=== PATIENT | female | born 1985 | race Caucasian/White ===

== ENCOUNTER 2019-10-24 08:00 | Emergency (ER) | payer BC, MEDICARE ==
[~2019-10-24] VITALS: Ht 157.5 cm; Wt 46.3 kg
--- NOTE | 2019-10-24 08:13 | NUR ---
DR Zabala at the bedside for eval.
[2019-10-24] MEDS ORDERED: levETIRAcetam 500 MG/5 ML VIAL IV ONE (08:27)
[2019-10-24] MEDS ORDERED: levETIRAcetam IV 1,000 MG in IV DEXTROSE 5% 100 ML IV ONE (08:30)
[2019-10-24] MEDS ORDERED: IV NORMAL SALINE 1000 ML BAG IV ONE (08:30)
[2019-10-24] MEDS ORDERED: levETIRAcetam 250 MG TABLET ONE (08:38)
[2019-10-24] MEDS ORDERED: BUPR300T52 PO (08:39)
[2019-10-24] MEDS ORDERED: LEVE1000 PO (08:39)
[2019-10-24] MEDS ORDERED: LEVO25TA2 PO (08:39)
[2019-10-24] MEDS ORDERED: MULT-594 PO (08:39)
--- NOTE | 2019-10-24 08:40 | NUR ---
Pt requested to have HL removed. IV removed. Catheter intact and site benign. Pressure and 4x4 gauze applied to site. No bleeding noted.
[2019-10-24 08:43] LABS: BASOPHILS % (AUTO) 0.7 % (0.0-2.0); EOSINOPHILS # (AUTO) 0.1 K/uL (0.0-0.7); EOSINOPHILS % (AUTO) 2.4 % (0.0-7.0); HEMATOCRIT 32.3 % (31.2-41.9); LYMPHOCYTES # (AUTO) 1.5 K/uL (20.0-40.0); LYMPHOCYTES % (AUTO) 30.3 % (20.5-51.5); MEAN CORPUSCULAR HEMOGLOBIN 33.1 uug (24.7-32.8); MEAN CORPUSCULAR HGB CONC 34 g/dL (32.3-35.6); MEAN CORPUSCULAR VOLUME 97.1 fL (75.5-95.3); MONOCYTES # (AUTO) 0.3 K/uL (2.0-10.0); MONOCYTES % (AUTO) 6.6 % (0.0-11.0); PLATELET COUNT (AUTO) 340 K/uL (179-408); RED BLOOD CELL COUNT(AUTO) 3.32 MIL/uL (3.63-4.92); WHITE BLOOD COUNT (AUTO) 4.9 K/uL (3.8-11.8)
--- NOTE | 2019-10-24 08:43 | NUR ---
Pt is awake and resting in bed, talking on the phone, No seizure activity noted so far.
[2019-10-24 08:49] LABS: CREATININE 1.1 mg/dL (0.6-1.3)
[2019-10-24 08:55] LABS: BILIRUBIN,DIRECT 0.2 mg/dL (0.0-0.2); BILIRUBIN,TOTAL 0.7 mg/dL (0.2-1.0); TOTAL PROTEIN, SERUM 6.6 g/dL (6.4-8.2)
[2019-10-24 09:58] VITALS: BP 113/65
--- NOTE | 2019-10-24 10:34 | NUR ---
Patient discharged in stable condition. Written and verbal after care instructions given. Patient verbalizes understanding of instructions. Stressed follow up or return to ER for worsening s/s. Pt left ER w/ steady gait.
== END 2019-10-24 10:42 | disposition home or self-care (01) ==
LOC: ER 08:00
DX: G40.909 Epilepsy, unspecified, not intractable, without status epilepticus (principal); S16.1XXA Strain of muscle, fascia and tendon at neck level, initial encounter; W10.9XXA Fall (on) (from) unspecified stairs and steps, initial encounter; Y92.89 Other specified places as the place of occurrence of the external cause; Z79.899 Other long term (current) drug therapy
CPT/HCPCS: 36415; 70450; 72125; 85025; 93005; A4663; J1953; J3490; J7030